=== PATIENT | female | born 1955 | race Caucasian/White ===

== ENCOUNTER 2018-07-09 19:17 | Emergency (ER) | payer SELFPAY ==
[~2018-07-09] VITALS: Ht 162.6 cm; Wt 51.7 kg
--- NOTE | 2018-07-09 19:40 | NUR ---
Pt. ambulated into ED w/ tooth pain, at bedside for MSE
--- NOTE | 2018-07-09 19:48 | NUR ---
Patient discharged to home in stable conditon. Written and verbal after care instructions given. Patient verbalizes understanding of instructions. Pt. d/c w/ prescriptions per MD order, d/c papers signed, all belongings w/ pt., ambulated out of ED w/ steady gait, ID band removed, NAD,
== END 2018-07-09 19:50 | disposition home or self-care (01) ==
LOC: ER 19:17
DX: K05.10 Chronic gingivitis, plaque induced (principal); Z88.2 Allergy status to sulfonamides; Z88.8 Allergy status to other drugs, medicaments and biological substances
CPT/HCPCS: A4663

== ENCOUNTER 2018-07-11 14:24 | Emergency (ER) | payer SELFPAY ==
[~2018-07-11] VITALS: Ht 162.6 cm; Wt 51.7 kg
--- NOTE | 2018-07-11 15:20 | NUR ---
Pt is moaning and C/O epigastric pain, Dr Lujan made aware x2, pt is awaiting to be seen.
--- NOTE | 2018-07-11 15:38 | NUR ---
Dr Lujan at the bedside for MSE.
[2018-07-11 16:37] LABS: BASOPHILS # (AUTO) 0.1 K/uL (0.0-8.0); BASOPHILS % (AUTO) 0.4 % (0.0-2.0); HEMATOCRIT 40.6 % (31.2-41.9); LYMPHOCYTES # (AUTO) 0.8 K/uL (20.0-40.0); LYMPHOCYTES % (AUTO) 3.9 % (20.5-51.5); MEAN CORPUSCULAR HEMOGLOBIN 32.2 uug (24.7-32.8); MEAN CORPUSCULAR HGB CONC 34 g/dL (32.3-35.6); MEAN CORPUSCULAR VOLUME 93.5 fL (75.5-95.3); MONOCYTES # (AUTO) 0.4 K/uL (2.0-10.0); NEUTROPHILS % (AUTO) 93.7 % (38.5-71.5); PLATELET COUNT (AUTO) 312 K/uL (179-408); RED BLOOD CELL COUNT(AUTO) 4.34 MIL/uL (3.63-4.92); WHITE BLOOD COUNT (AUTO) 19.2 K/uL (3.8-11.8)
[2018-07-11 16:47] LABS: CREATININE 0.8 mg/dL (0.6-1.3); POTASSIUM 3.8 mmol/L (3.5-5.1)
[2018-07-11 16:53] LABS: BILIRUBIN,DIRECT 0.2 mg/dL (0.0-0.2); TOTAL PROTEIN, SERUM 8.2 g/dL (6.4-8.2)
[2018-07-11] MEDS ORDERED: ONDANSETRON IV *ER 4 MG/2 ML VIAL IV ONE (17:15)
[2018-07-11] MEDS ORDERED: IV NORMAL SALINE 1000 ML BAG IV ONE (17:15)
[2018-07-11] MEDS ORDERED: HYDROMORPHONE 1 MG/1 ML DISP.SYRIN IV ONE (17:15)
[2018-07-11] MEDS ORDERED: DIATR MEGLU/DIATRIZOATE SODIUM 30 ML SOLUTION PO ONE (17:15)
[2018-07-11] MEDS ORDERED: ONDANSETRON 4 MG/2 ML VIAL ONE (17:23)
[2018-07-11] MEDS ORDERED: HYDROMORPHONE 1 MG/1 ML DISP.SYRIN ONE (17:23)
[2018-07-11] MEDS ORDERED: DIATR MEGLU/DIATRIZOATE SODIUM 30 ML SOLUTION ONE (17:35)
--- NOTE | 2018-07-11 17:35 | NUR ---
Pt refused to have Ct scan, stating "I just had one in [facility]". Dr Lujan spoke to Pt and is aware.
--- NOTE | 2018-07-11 17:58 | NUR ---
Patient is resting comfortably in bed with eyes closed, NAD noted.
--- NOTE | 2018-07-11 19:20 | NUR ---
Received report from laura RN, assumed care of pt.,
--- NOTE | 2018-07-11 19:45 | NUR ---
Pt. states she is too weak to ambulate to restroom, given bedpan - yellow urine given - no blood/odor noted,
[2018-07-11] MEDS ORDERED: HYDROCODONE/APAP 5-325MG TABLET PO ONE (20:30)
[2018-07-11] MEDS ORDERED: HYDROCODONE/APAP 5-325MG TABLET ONE (20:36)
--- NOTE | 2018-07-11 21:06 | NUR ---
Patient discharged to home in stable conditon. Written and verbal after care instructions given. Patient verbalizes understanding of instructions. Pt. d/c w/ prescription per MD order, all belongings w/ pt. d/c papers signed, ID band removed, ambulated w/ steady gait off unit, NAD
== END 2018-07-11 21:09 | disposition home or self-care (01) ==
LOC: ER 14:24
DX: G89.29 Other chronic pain (principal); R10.84 Generalized abdominal pain; R11.0 Nausea; R19.7 Diarrhea, unspecified; Z88.2 Allergy status to sulfonamides; Z88.8 Allergy status to other drugs, medicaments and biological substances
CPT/HCPCS: 36415; 76700; 80048; 80076; 83690; 84484 ×2; 85025; 85730; 93005 ×3; 96361; 96374; 96375; 99284; J1170; J2405; 70030-TC; A4663; J7030; Q9963